=== PATIENT | female | born 1985 | race Caucasian/White ===

== ENCOUNTER → 2021-04-06 | Outpatient (CLI) | payer BC ==
[2021-04-06 16:42] LABS: Basophils # (A) 0.1 k/uL (0-0.2); Basophils % (A) 1 %; Eosinophils # (A) 0.3 k/uL (0-0.7); Eosinophils % (A) 3 %; HCT 41.6 % (34.0-46.0); Lymphocytes # (A) 2.4 k/uL (1.0-4.8); Lymphocytes % (A) 25 %; MCH 29.3 pg (25.0-35.0); MCHC 33.6 g/dL (31.0-37.0); MCV 87.2 fL (80.0-100.0); Mean Platelet Volume 7.6; Monocytes # (A) 0.4 k/uL (0-1.0); Monocytes % (A) 4 %; Neutrophils # (A) 6.2 k/uL (1.3-7.7); Neutrophils % (A) 66 %; Platelet Count 303 k/uL (150-450); RBC 4.77 m/uL (3.80-5.40); RDW 12.9 % (11.5-15.5); WBC 9.5 k/uL (3.8-10.6)
== END | disposition home or self-care (01) ==
LOC: LABPAT 15:16
PROVIDERS: ATTEND Obstetrics & Gynecology
DX: Z01.812 Encounter for preprocedural laboratory examination (principal); N92.1 Excessive and frequent menstruation with irregular cycle
CPT/HCPCS: 36415; 85025

== ENCOUNTER 2021-04-24 07:23 | Day surgery (SDC) | payer BC ==
[2021-04-20 15:10] VITALS: BMI 30.4
[~2021-04-24 07:23] MED LIST: DEXAMETHASONE SOD PHOSPHATE 4 MG/ML 1 ML VIAL IV ONE; HYDROmorphone 0.5 MG/0.5 ML SYRINGE IVP PRN; LACTATED RINGERS 1,000 ML IV SCH; MIDAZOLAM 2 MG/2 ML VIAL IV PRN; ONDANSETRON 4 MG/2 ML VIAL IVP ONE; Pre Op ABX Message 1 EACH MISC MISCELLANE ONE; SCOPOLAMINE 1.5MG/72HR PATCH TRANSDERM ONE
[2021-04-24] MEDS ORDERED: fentaNYL (PF) 50 MCG/ML 2 ML AMP ONE (08:31)
[2021-04-24] MEDS ORDERED: LIDOCAINE 1% INJ 10MG/ML (20 ML MDV) ONE (08:31)
[2021-04-24] MEDS ORDERED: PROPOFOL 10 MG/ML 20 ML VIAL IV ONE (08:31)
[2021-04-24] MEDS ORDERED: ROCURONIUM 10 MG/ML (5 ML VIAL) IV ONE (08:31)
[2021-04-24] MEDS ORDERED: NEOSTIGMINE 1 MG/ML 10 ML VIAL ONE (08:31)
[2021-04-24] MEDS ORDERED: GLYCOPYRROLATE 0.2 MG/ML 2 ML VIAL ONE (08:31)
[2021-04-24] MEDS ORDERED: MIDAZOLAM 2 MG/2 ML VIAL ONE (08:31)
[2021-04-24] MEDS ORDERED: BUPIVACAINE (PF) 0.5% 30 ML VIAL SQ ONE (09:04)
[2021-04-24 09:39] VITALS: TEMP 97.7
[2021-04-24] MEDS ORDERED: KETOROLAC 15 MG/ML 1 ML VIAL IVP ONE (09:40)
[2021-04-24] MEDS ORDERED: KETOROLAC 15 MG/ML 1 ML VIAL ONE (09:43)
[2021-04-24 09:52] VITALS: RESP 18
[2021-04-24] MEDS ORDERED: LACTATED RINGERS 1,000 ML IV ONE (09:56)
[2021-04-24] MEDS ORDERED: Acetaminophen-Codeine 300-30mg TAB PO PRN ×2 (10:07)
[2021-04-24] MEDS ORDERED: METOCLOPRAMIDE 5 MG/ML 2 ML VIAL IVP PRN (10:07)
[2021-04-24] MEDS ORDERED: KETOROLAC 15 MG/ML 1 ML VIAL IVP PRN (10:07)
[2021-04-24] MEDS ORDERED: IBUPROFEN 600 MG TAB PO PRN (10:07)
[2021-04-24] MEDS ORDERED: diphenhydrAMINE 50 MG/ML 1 ML VIAL IVP PRN (10:07)
[2021-04-24] MEDS ORDERED: ONDANSETRON 4 MG/2 ML VIAL IVP PRN (10:07)
[2021-04-24] MEDS ORDERED: SIMETHICONE 80 MG CHEWABLE PO PRN (10:07)
--- NOTE | 2021-04-24 10:12 | HP ---
History of Present Illness H&P Date: 04/24/21 Chief Complaint: Metromenorrhagia, undesired fertility The patient is a 32-year-old 2 para 200-2 presents with about 8 months history of irregular and very heavy bleeding which has happened historically as well with some respites between. She is currently using condoms for contraception and is interested in permanent sterilization with tubal ligation. Given her issues with the ongoing heavy and irregular bleeding, she has requested both laparoscopic bilateral tubal occlusion with Filshie clips as well as NovaSure endometrial ablation. We will additionally performed D&C prior to the ablation in order to at have a biopsy on file. Obstetrical history: 2 para 2001 with 1 term vaginal delivery followed by a term section. Method of contraception is condoms as noted above. Gynecologic history: Unremarkable with no history of any infections to include STDs. Review of Systems Review of systems is confined to history of present illness. Past Medical History Past Medical History: No Reported History Additional Past Medical History / Comment(s): bulging disc History of Any Multi-Drug Resistant Organisms: None Reported Past Surgical History: Appendectomy, Tonsillectomy Past Anesthesia/Blood Transfusion Reactions: No Reported Reaction Past Psychological History: No Psychological Hx Reported Smoking Status: Never smoker Past Alcohol Use History: None Reported Past Drug Use History: None Reported - Past Family History Mother Family Medical History: No Reported History Medications and Allergies Home Medications Medication Instructions Recorded Confirmed Type Pnv No.95/Ferrous Fum/Folic AC 1 tab PO ONCE 04/24/21 04/24/21 History [ Multivitamin Tablet] Allergies Allergy/AdvReac Type Severity Reaction Status Date / Time No Known Allergies Allergy Verified 09/11/19 14:05 Exam Vital Signs Temp Pulse Resp BP Pulse Ox 04/24/21 06:47 96.7 F L 100 16 128/84 97 Intake and Output 04/23/21 04/24/21 04/24/21 22:59 06:59 14:59 Other: Weight 121.109 kg In general, this is a well-developed, well-nourished white female in no acute distress. Her heart has a regular rhythm and rate without murmur. Her lungs are clear to auscultation bilaterally in all bautista. Her abdomen is nondistended, has normal active bowel sounds, is soft, nontender, and without any palpable masses, para thoroughly, or hernias. Her extremities are without any cyanosis, clubbing, or edema and are nontender to palpation bilaterally. Pelvic examination is deferred to the operating room. Results Result Diagrams: 04/24/21 06:45 Assessment and Plan (1) Menometrorrhagia Current Visit: Yes Status: Acute Code(s): N92.1 - EXCESSIVE AND FREQUENT MENSTRUATION WITH IRREGULAR CYCLE SNOMED Code(s): 541745892 (2) Family planning Current Visit: Yes Status: Acute Code(s): Z30.09 - ENCOUNTER FOR [facility] AND ADVICE ON CONTRACEPTION SNOMED Code(s): 732887219 Plan: Options for treatment were thoroughly discussed. The patient has requested laparoscopic bilateral tubal occlusion with Filshie clips, diagnostic hysteroscopy with D&C to be followed by NovaSure endometrial ablation. Elmo complications of the procedure been thoroughly discussed including the risk for bleeding, bleeding requiring transfusion, infection, injury to local structures to include the bowel, bladder, and ureters for the laparoscopic portion and to include uterine perforation, Asherman syndrome, and subsequent hematometra for the ablation portion. She is understood all of this and agreed to proceed. TREVON
--- NOTE | 2021-04-24 10:14 | OP ---
Date of Procedure: 04/24/21 Preoperative Diagnosis: #1. Undesired fertility #2. Menometrorrhagia Postoperative Diagnosis: Same Procedure(s) Performed: #1. Laparoscopic bilateral tubal occlusion with Filshie clips #2. Diagnostic hysteroscopy #3. Dilation and curettage #4. NovaSure endometrial ablation Anesthesia: SHERIN Surgeon: Jean Carlos Marie Estimated Blood Loss (ml): 5 IV fluids (ml): 600 Urine output (ml): 100 Pathology: other (Endometrial curettings) Condition: stable Disposition: PACU Operative Findings: Preoperative pelvic examination demonstrated a roughly 5 week acutely retroverted mobile normal shaped uterus with normal adnexa bilaterally. Intraoperatively this was confirmed though the uterus was somewhat soft and floppy consistent with the possibility of adenomyosis. A Filshie clip was placed firmly across each tube in the isthmic portion. The small and large bowel as well as the liver, gallbladder and diaphragm were entirely normal to inspection. The appendix was also normal to inspection. There was an omental adhesion just lateral to the umbilicus and slightly inferior to it consistent with the possibility of a ventral wall hernia as the patient has had no previous abdominal surgery aside from a section. The adhesion was left in place. There was no evidence of endometriosis or other pathology in the pelvis. The uterus sounded to 9 cm with a cervical length of approximately 3.5 cm. The hysteroscope demonstrated some shaggy tissue throughout the entire endometrial cavity and the bilateral tubal ostia were seen. The settings for the NovaSure tool where a length of 5.5 cm, a width of 3.6 cm for a total power of 109 W. The total run time was 56 seconds after which time the base unit read "procedure complete." The postprocedural hysteroscopic result appeared to be excellent. The patient is a potential candidate for vaginal hysterectomy should it become necessary in the future. Description of Procedure: The patient was prepped and draped in usual fashion after general endotracheal anesthesia was administered by the anesthesiologist. A weighted speculum was placed and the bladder was drained of approximately 100 mL of clear alona urine. The anterior lip of the cervix was grasped with a single-tooth tenaculum allowing insertion of an acorn cannula for manipulation. Attention was then turned to the abdomen where a roughly 5 mm incision was made in the vertical fold of the umbilicus allowing insertion of a 5 mm optical trocar under direct visualization without difficulty. A pneumoperitoneum was then infused. The omental adhesion was noted in the midline. A site was selected through the previous section scar in the transverse plane where an 8 mm incision was made in the midline allowing insertion of an 8 mm optical trocar under direct visualization without difficulty. The blunt probe was utilized to sweep the bowel from the pelvis and the findings are as noted above. There was some difficulty in seeing the entire pelvis at the same time secondary to the omental adhesion. After seeing no pathology in the pelvis, the probe was replaced with a Filshie clip applicator which was utilized to place a Filshie clip across the isthmic portion of the right fallopian tube approximately 2-3 cm from the cornu where was firmly affixed. A similar operation was carried out on the left without difficulty. The remainder of the abdomen was then examined. There was no evidence of endometriosis or other pathology in the pelvis. The appendix was entirely normal to inspection as was a small and large bowel. The liver and gallbladder and diaphragm appeared normal as well. All instrumentation was then removed from the abdomen after evacuating the pneumoperitoneum through the 2 ports. The incisions were closed with interrupted subcuticular stitches of 4-0 Vicryl. I returned to the vaginal portion of the procedure and replaced the weighted speculum and remove the acorn cannula. The uterus was sounded to 9 cm as noted above with a cervical length of 3.5 cm. Serial dilation was carried out to admit the diagnostic hysteroscope which was placed into the cavity and it distended with normal saline. The findings are as noted above with no evidence of any pathology though there was a moderate amount of shaggy endometrium present. The bilateral tubal ostia were seen. The scope was then set aside and a Telfa placed in the vagina allowing thorough and circumferential endometrial curettage with a medium sharp curette. A moderate amount of tissue was removed onto the Telfa and sent to pathology for diagnoses. The NovaSure tool was then placed into the uterus, opened, and seated well. The settings were as noted above with a length of 5.5 cm, a width of 3.6 cm for a total power of 109 W. The cavity check was attempted and passed without difficulty and the tool was enabled. The run was started and, after a total run time of 56 seconds, the base unit read "procedure complete." The 2 was closed, removed, and discarded. The diagnostic scope was replaced and the resulting findings were excellent. All instrumentation was then removed and one point of bleeding from one of the tenaculum sites was made hemostatic with pressure. Estimated blood loss for the entire case was 5 mL or less. There were no complications. All sponge, instrument, and needle counts were correct. The patient is a potential candidate for vaginal hysterectomy should it become necessary in the future given the degree of descensus. There did not appear to be any significant scarring at the level of the bladder. The patient tolerated the procedure well and proceeded to the recovery room in stable condition. TREVON
[2021-04-24] MEDS ORDERED: LACTATED RINGERS 1,000 ML IV SCH (10:15)
[2021-04-24 11:11] VITALS: BP 133/83; PULSE 67
== END 2021-04-24 11:39 | disposition home or self-care (01) ==
LOC: OR 07:23
PROVIDERS: ATTEND Obstetrics & Gynecology
DX: Z30.2 Encounter for sterilization (principal); N92.1 Excessive and frequent menstruation with irregular cycle; N97.1 Female infertility of tubal origin; N84.0 Polyp of corpus uteri
CPT/HCPCS: 58671; 81025; 88305; J2250; J1100; J2710; J2405; J2001; J3010; J1885; J2704